=== PATIENT | male | born 1975 | race African-American/Black ===

== ENCOUNTER 2020-10-22 09:23 | Emergency (ER) | payer SELFPAY ==
[~2020-10-22] VITALS: Ht 175.3 cm; Wt 77.3 kg
[2020-10-22 09:32] VITALS: TEMP 98.2
[2020-10-22] MEDS ORDERED: FLEXERIL 1010 MG/TAB PO (10:53)
[2020-10-22 11:06] VITALS: BP 147/79; PULSE 67
== END 2020-10-22 11:08 | disposition home or self-care (01) ==
LOC: COL.ER 09:23
DX: S39.012A Strain of muscle, fascia and tendon of lower back, initial encounter (principal); X50.0XXA Overexertion from strenuous movement or load, initial encounter; Y93.89 Activity, other specified; Y92.512 Supermarket, store or market as the place of occurrence of the external cause
CPT/HCPCS: J1885; J2360

== ENCOUNTER 2020-10-25 18:38 | Emergency (ER) | payer SELFPAY ==
[~2020-10-25] VITALS: Ht 175.3 cm; Wt 75.0 kg
[~2020-10-25 18:38] MED LIST: FLEXERIL 1010 MG/TAB PO
[2020-10-25 20:05] VITALS: BP 132/64; PULSE 80; TEMP 97.6
== END 2020-10-25 20:09 | disposition home or self-care (01) ==
LOC: COL.ER 18:38
DX: M54.5 Low back pain (principal); F17.210 Nicotine dependence, cigarettes, uncomplicated

== ENCOUNTER 2020-10-27 22:13 | Emergency (ER) | payer SELFPAY ==
[~2020-10-27] VITALS: Ht 175.3 cm; Wt 75.0 kg
[2020-10-28 00:10] LABS: COLLECTION METHOD CLEAN CATCH
[2020-10-28 00:15] LABS: PH 7 (5-8); SQUAMOUS EPITHELIAL None Seen /hpf; URINE APPEARANCE Clear; URINE BACTERIA None Seen /hpf; URINE BILIRUBIN Negative (NEGATIVE); URINE BLOOD Negative (NEGATIVE); URINE COLOR Straw; URINE GLUCOSE Negative (NEGATIVE); URINE KETONE Negative (NEGATIVE); URINE LEUKOCYTE ESTERASE Negative (NEGATIVE); URINE NITRATE Negative (NEGATIVE); URINE PROTEIN(semi-quant) Negative (NEGATIVE); URINE RBC None Seen /hpf; URINE UROBILINOGEN Negative (NEGATIVE)
[2020-10-28] MEDS ORDERED: ZANAFLEX 4MG TAB4 MG PO (00:26)
[2020-10-28] MEDS ORDERED: NAPROSYN500 MG PO (00:26)
[2020-10-28] MEDS ORDERED: MEDROL 4MG DOSPA4 MG PO (00:26)
[2020-10-28 01:00] VITALS: BP 138/82; PULSE 78; TEMP 98.7
== END 2020-10-28 01:01 | disposition home or self-care (01) ==
LOC: COL.ER 22:13
PROVIDERS: Nurse Practitioner Primary Care
DX: M54.5 Low back pain (principal)
CPT/HCPCS: J1885

== ENCOUNTER 2020-11-25 12:51 | Emergency (ER) | payer BC ==
[~2020-11-25] VITALS: Ht 175.3 cm; Wt 77.3 kg
[~2020-11-25 12:51] MED LIST changes: +MEDROL 4MG DOSPA4 MG PO; +NAPROSYN500 MG PO; +ZANAFLEX 4MG TAB4 MG PO
[2020-11-25 13:56] VITALS: BP 129/65; TEMP 99
[2020-11-25 16:25] VITALS: PULSE 71
== END 2020-11-25 16:25 | disposition home or self-care (01) ==
LOC: COL.ER 12:51
DX: M54.42 Lumbago with sciatica, left side (principal)